=== PATIENT | male | born 1945 | race Caucasian/White ===

== ENCOUNTER 2016-11-13 07:31 | Observation (INO) | payer BC ==
[2016-11-08 11:09] LABS: WBC (NOT ORDERED) (RFLEX) 0 (0-5)
[2016-11-08 11:17] LABS: ASCORBIC ACID (UR NOT ORDER) NEG (NEG); BILIRUBIN, URINE NEGATIVE (NEG); KETONE, URINE NEGATIVE (NEG); LEUKOCYTE ESTERASE(NOT OR NEG (NEG)
[2016-11-08 11:41] LABS: HEMATOCRIT 48.3 % (40.0-51.0); HEMOGLOBIN 16.4 g/dL (13.6-17.8)
[2016-11-08 11:47] LABS: PARTIAL THROMBO TIME 26.7 SEC (22.5-37.2)
[2016-11-08 11:54] LABS: BUN (BLOOD UREA NITROGEN) 15 MG/DL (6-23); CHLORIDE, SERUM 102 MMOL/L (96-112); CO2 (CARBON DIOXIDE) 28 MMOL/L (24-34); CREATININE 1.45 MG/DL (0.70-1.30); GFR AFRICAN AMERICAN 57 ML/MIN (>=60); GFR NON AFRICAN AMERICAN 49 ML/MIN (>=60); GLUCOSE, SERUM 237 MG/DL (60-99); SODIUM, SERUM 141 MMOL/L (135-148)
[2016-11-08 11:55] LABS: CALCIUM, SERUM 10.4 MG/DL (8.5-10.4)
--- NOTE | ~2016-11-13 | OP ---
Record Of Operation [facility] [address] [place]. [address] NAME: RADHA QUIROZ : 49 STATUS : ADM Jane PAT#: [id number] AGE: 71 ADM/REG DATE : 11/13/16 MR#: [id number] REPORT SERV DATE: 11/13/16 DICTATED BY: GERMAN ARRIETA DATE: 11/13/16 REPORT STATUS : Draft TRANSCRIBED BY: MODL DATE: 11/13/16 DATE OF PROCEDURE: 11/13/2016 PREOPERATIVE DIAGNOSIS: Erectile dysfunction. OTHER DIAGNOSES: Diabetes mellitus and hypertension. PROCEDURE: Insertion of inflatable penile prosthesis, three-piece. SURGEON: German Arrieta M.D. GROUNDS CLEANER: Schuyler Sauceda. ANESTHESIA: General. BLOOD LOSS: Estimated 25 mL. FLUID REPLACEMENT: Unknown. DRAINS: A 16-[place] Arrieta catheter per urethra. INDICATION: A 71-year-old white male with diabetes, hypertension. He has erectile dysfunction, refractory to medical therapy. He consents to an inflatable penile prosthesis. HARDWARE: AMS and LGX 18 cm cylinders with 3 cm rear-tip extenders bilaterally and 100 mL reservoir in the left retropubic space, all placed through a penoscrotal incision. TECHNIQUE: The patient was identified, brought to the operating room, administered general anesthetic agent by the Anesthesia Service and intubated. He was positioned in dorsal lithotomy position. The lower abdomen, penis, groin, scrotum, and perineum were prepped for 10 minutes and draped with sterile plastic drapes. A 16-[place] Arrieta catheter was passed in the bladder, left for drainage. The bladder was drained and then capped. 0.5% Marcaine plain was used to infiltrate the median raphe of the scrotum at the penoscrotal junction. A 5-cm skin incision was made with a 15-blade scalpel. It was carried down through dartos layer. Bains fascia was exposed and incised sharply. The three corpora of the penis were exposed. I exposed the corpora cavernosum as proximally as possible on both sides. A [place] retractor system was used to maintain exposure. Copious amounts of antibiotic irrigation were used throughout the case. Holding sutures were placed in the most proximal portion of the corpora cavernosum bilaterally. 0.5% Marcaine plain was inserted into the corpora. I then made 2 cm corporotomies on each side. I dissected inside the corpora with Metzenbaum scissors proximally and distally. I then used the Dilamezinsert device to dilate and measure the corpora. Both corpora measured 21 cm with approximately 10 cm proximal length. I therefore selected the 18 cm cylinders and 3 cm rear-tip extenders. Record Of Operation [facility] [address] [place]. [address] NAME: RADHA QUIROZ : 49 STATUS : ADM Jane PAT#: [id number] AGE: 71 ADM/REG DATE : 11/13/16 MR#: [id number] REPORT SERV DATE: 11/13/16 DICTATED BY: GERMAN ARRIETA DATE: 11/13/16 REPORT STATUS : Draft TRANSCRIBED BY: OPHELIA DATE: 11/13/16 I dissected up along the left spermatic cord and placed my finger through the wound and into the inguinal canal on the left. I palpated the medial wall of the inguinal canal. I emptied the bladder one more time. I then used a Jackie clamp and pierced the medial wall of the inguinal canal. I placed my finger through this fenestration and created a space. I then placed a nasal speculum through this fenestration. An empty 100 mL flat reservoir was placed in the retropubic space. I removed the nasal speculum and then filled the reservoir with 100 mL of saline and held it without any back pressure. It was shodded and to keep it full. I then used the Garry needle carrier and passed it through the corporotomies and out through the glans penis on each side. This was connected to the strings of the cylinders. I then positioned the cylinders into the corpora. They fit very nicely. I closed the corporotomies by closing together the holding sutures of 2-0 PDS. On the left side, I placed an extra distal simple interrupted 2-0 PDS. I then used a surrogate reservoir and did a test erection. I held it with very good glans support. I then took all the fluid out of the cylinders. I buried the pump mechanism into the dependent portion of the scrotum. It was anchored in place with 3-0 Vicryl. I trimmed the excess tubing and used the Quick Connect system to connect the reservoir to the pump mechanism. Once I had it connected, I again tested it. I left it erect for approximately 12 minutes. I held the erection and all tissues remained viable. I irrigated copiously. I closed Bains's fascia with running 3-0 Vicryl. I closed dartos layer with running 3-0 Vicryl. I closed the skin with running 4-0 Monocryl. A dressing of Dermabond, fluff, and scrotal support was applied. The catheter was connected to drainage. The erection was deflated. The patient was awakened and taken to the recovery unit in stable and satisfactory condition. PF/MODL German Arrieta M.D. / [id number] CC: Heena Lucas HENRY W.B.
[~2016-11-13 07:31] MED LIST: ALEVE220 MG PO; AMARYL2 PO; ASAB PO; CENTRUM PO; CO Q-10100 MG PO; COREG6 PO; COZAAR100 MG PO; DULERA 200 MCG/13 GM INH; FLEX PO; GLUCPH8 PO; HYDROCHLOROT25 MG PO; NITROSTAT0.4 MG SL; OSTEO BI-FLEX1 EACH PO; PRILO PO; PRIN20 PO; PROAIR HFA INH; PROVHFA INH; VITAMIN B-121000 MC1 SL; VITC500 PO
[2016-11-14] MEDS ORDERED: K500 PO (08:08)
[2016-11-14] MEDS ORDERED: DIL2TAB PO (08:08)
== END 2016-11-14 13:20 | disposition home or self-care (01) ==
LOC: SDC 07:31 → SDC/OF 12:14 → 4SO 13:37
PROVIDERS: Urology
PROC: 0VUS0JZ Supplement Penis with Synthetic Substitute, Open Approach (ICD-10-PCS; principal; 2016-11-13 09:30)
DX: N52.9 Male erectile dysfunction, unspecified (principal); J45.909 Unspecified asthma, uncomplicated; E11.22 Type 2 diabetes mellitus with diabetic chronic kidney disease; I12.9 Hypertensive chronic kidney disease with stage 1 through stage 4 chronic kidney disease, or unspecified chronic kidney disease; M19.90 Unspecified osteoarthritis, unspecified site; N18.9 Chronic kidney disease, unspecified; K21.9 Gastro-esophageal reflux disease without esophagitis; Z87.442 Personal history of urinary calculi; Z98.890 Other specified postprocedural states; Z88.5 Allergy status to narcotic agent
CPT/HCPCS: 80048; 81001; 82962; 83036; 85014; 85018; 85610; 85730; 93005; 94640; 96374; A9270-GY; C1813; G0378; J1580; J2270; J2405; J2710; J3370